=== PATIENT | female | born 2000 ===

== ENCOUNTER 2021-04-29 10:38 | Emergency (ER) | payer OTHER ==
[~2021-04-29] VITALS: Ht 165.1 cm; Wt 80.7 kg
[2021-04-29] MEDS ORDERED: ATABEX OB TABL1 EACH (10:59)
== END 2021-04-29 15:38 | disposition home or self-care (01) ==
LOC: ER 10:38
DX: E86.0 Dehydration (principal)

== ENCOUNTER 2021-07-06 13:06 | Outpatient (CLI) | payer OTHER ==
[~2021-07-06 13:06] MED LIST: ATABEX OB TABL1 EACH
== END 2021-07-06 13:56 | disposition home or self-care (01) ==
LOC: PRENATAL 13:06
PROVIDERS: ATTEND Obstetrics & Gynecology Maternal & Fetal Medicine
DX: O35.0XX1 Maternal care for (suspected) central nervous system malformation in fetus, fetus 1 (principal); O35.3XX1 Maternal care for (suspected) damage to fetus from viral disease in mother, fetus 1; O98.512 Other viral diseases complicating pregnancy, second trimester; O99.891 Other specified diseases and conditions complicating pregnancy; Z36.89 Encounter for other specified antenatal screening; Z3A.26 26 weeks gestation of pregnancy

== ENCOUNTER 2021-10-04 06:53 | Inpatient (IN) | payer OTHER ==
[~2021-10-04] VITALS: Ht 165.1 cm; Wt 2.7 kg
[2021-10-04] MEDS ORDERED: NITROFURANTOIN100 MG PO (09:43)
[2021-10-07] MEDS ORDERED: COLACE100 MG PO (07:49)
[2021-10-07] MEDS ORDERED: PERCOCET 5-3251 EACH PO (07:49)
[2021-10-07] MEDS ORDERED: SIMETHICONE80 MG PO (07:49)
[2021-10-07] MEDS ORDERED: IBUPROFEN800 MG PO (07:49)
== END 2021-10-07 11:51 | disposition home or self-care (01) | DRG 788 ==
LOC: LDR 06:53 → O/R 10-05 07:43 → PED 10-05 08:31
PROVIDERS: ADMIT Obstetrics & Gynecology; ATTEND Obstetrics & Gynecology
PROC: 10907ZC Drainage of Amniotic Fluid, Therapeutic from Products of Conception, Via Natural or Artificial Opening (ICD-10-PCS; 2021-10-04)
PROC: 3E033VJ Introduction of Other Hormone into Peripheral Vein, Percutaneous Approach (ICD-10-PCS; 2021-10-04)
PROC: 4A1HXFZ Monitoring of Products of Conception, Cardiac Rhythm, External Approach (ICD-10-PCS; 2021-10-04)
PROC: 10D00Z1 Extraction of Products of Conception, Low, Open Approach (ICD-10-PCS; principal; 2021-10-04 21:15)
DX: O65.8 Obstructed labor due to other maternal pelvic abnormalities (principal); O62.1 Secondary uterine inertia; Z3A.39 39 weeks gestation of pregnancy; Z37.0 Single live birth